=== PATIENT | female | born 1970 | race Caucasian/White ===

== ENCOUNTER → 2023-09-30 06:24 | Day surgery (SDC) | payer BC, SELFPAY | LOC: GI 06:24 | PROVIDERS: ATTENDING PHYSICIAN Internal Medicine Gastroenterology | DX: Z12.11 Encounter for screening for malignant neoplasm of colon (principal); K64.0 First degree hemorrhoids; R12 Heartburn; K31.7 Polyp of stomach and duodenum; K22.89 Other specified disease of esophagus; R19.7 Diarrhea, unspecified; K29.50 Unspecified chronic gastritis without bleeding | CPT/HCPCS: 45380; 43239; 88305; 88342 ==

== ENCOUNTER → 2024-03-28 15:03 | Outpatient (REF) | payer BC, SELFPAY | LOC: RAD 15:03 | PROVIDERS: ATTENDING PHYSICIAN Otolaryngology; FAMILY PHYSICIAN Family Medicine | DX: H93.A1 Pulsatile tinnitus, right ear (principal) | CPT/HCPCS: 70496; 70498; Q9967 ==

== ENCOUNTER → 2024-06-05 16:03 | Outpatient (REF) | payer BC, SELFPAY ==
[2024-06-20 05:49] LABS: HPV, High Risk Not Detected; HPV, High Risk Source Cervical
== END ==
LOC: CPAP 16:03
PROVIDERS: ATTENDING PHYSICIAN Obstetrics & Gynecology
DX: Z01.419 Encounter for gynecological examination (general) (routine) without abnormal findings (principal)
CPT/HCPCS: 87624

== ENCOUNTER → 2024-06-12 09:23 | Outpatient (REF) | payer BC, SELFPAY | LOC: HWWDC 09:23 | PROVIDERS: ATTENDING PHYSICIAN Family Medicine | DX: Z12.31 Encounter for screening mammogram for malignant neoplasm of breast (principal) | CPT/HCPCS: 77063; 77067 ==

== ENCOUNTER → 2024-11-07 10:02 | Outpatient (REF) | payer BC, SELFPAY ==
[2024-11-08 16:08] LABS: Lyme Antibody Screen, EIA Negative (Negative)
== END ==
LOC: HWRAD 10:02
PROVIDERS: ATTENDING PHYSICIAN Family Medicine
DX: M79.661 Pain in right lower leg (principal); W57.XXXA Bitten or stung by nonvenomous insect and other nonvenomous arthropods, initial encounter
CPT/HCPCS: 36415; 73590; 86618

== ENCOUNTER → 2024-12-25 07:49 | Outpatient (REF) | payer BC, SELFPAY ==
[2024-12-25 09:49] LABS: Hematocrit 41.8 % (37.0-47.0); Hemoglobin 13.8 g/dL (12.0-16.0); Mean Corp Hgb Conc. 33.0 g/dL (33.0-37.0); Mean Corpuscular Volume 86.0 fL (81.0-99.0); Nucleated Red Blood Cells % 0 %; Platelet Count 329 10^3/uL (130-400); Red Cell Dist. Width 13.7 % (11.5-14.5)
[2024-12-25 09:54] LABS: INR 0.86; PT 12.0 Sec (11.4-14.6)
[2024-12-25 09:55] LABS: APTT 26.9 Sec (23.4-35.0)
[2024-12-25 10:48] LABS: FSH 74.1 mIU/ml
[2024-12-25 10:57] LABS: ALT (SGPT) 41 U/L (0-35); AST (SGOT) 32 U/L (14-36); Albumin 4.8 g/dl (3.5-5.0); Alkaline Phosphatase 105 U/L (38-126); Blood Urea Nitrogen 21 mg/dl (7-17); Calcium 9.6 mg/dl (8.4-10.2); Carbon Dioxide 29 mmol/L (22-30); Chloride 104 mmol/L (98-107); Glucose 72 mg/dl (70-99); Potassium 4.7 mmol/L (3.5-5.1); Sodium 141 mmol/L (135-145); Total Protein 7.7 g/dl (6.3-8.2); eGFR > 60.00
[2024-12-25 11:02] LABS: CA 125 6.4 U/mL (0-35)
[2024-12-25 11:03] LABS: CEA 1.17 ng/ml
[2024-12-25 12:07] LABS: LDH 266 U/L (120-246)
== END ==
LOC: RAD 07:49
PROVIDERS: ATTENDING PHYSICIAN Obstetrics & Gynecology Gynecologic Oncology; FAMILY PHYSICIAN Family Medicine
DX: R93.5 Abnormal findings on diagnostic imaging of other abdominal regions, including retroperitoneum (principal); N95.1 Menopausal and female climacteric states; R10.30 Lower abdominal pain, unspecified; Z84.81 Family history of carrier of genetic disease
CPT/HCPCS: 36415; 74177; 80053; 82378; 83001; 83002; 83615; 84270; 84402; 84403; 84439; 84443; 85025; 85610; 85730; 86304; Q9967

== ENCOUNTER → 2025-01-04 09:54 | Outpatient (REF) | payer BC, SELFPAY | LOC: HWRAD 09:54 | PROVIDERS: ATTENDING PHYSICIAN Obstetrics & Gynecology Gynecologic Oncology; FAMILY PHYSICIAN Family Medicine | DX: R93.5 Abnormal findings on diagnostic imaging of other abdominal regions, including retroperitoneum (principal); N95.1 Menopausal and female climacteric states; Z84.81 Family history of carrier of genetic disease; R10.30 Lower abdominal pain, unspecified | CPT/HCPCS: 76830; 76856 ==

== ENCOUNTER → 2025-01-07 10:40 | Outpatient (REF) | payer BC, SELFPAY ==
[2025-01-07 12:10] LABS: Glycohemoglobin (HgbA1c) 5.4 % (4.0-5.6)
[2025-01-07 18:53] LABS: FSH 71.9 mIU/ml
== END ==
LOC: REG 10:40
PROVIDERS: ATTENDING PHYSICIAN Obstetrics & Gynecology; FAMILY PHYSICIAN Family Medicine
DX: N95.1 Menopausal and female climacteric states (principal)
CPT/HCPCS: 36415; 82670; 83001; 83036; 83090

== ENCOUNTER → 2025-05-01 15:33 | Outpatient (REF) | payer BC, SELFPAY ==
[2025-05-01 16:45] LABS: Free T3 2.86 pg/ml (2.77-5.27)
[2025-05-01 16:59] LABS: TSH 0.47 uIU/ml (0.47-4.68)
[2025-05-03 19:53] LABS: Total T3 (Sendout) 109 ng/dL (80-200)
[2025-05-04 02:01] LABS: Thyroid Stim. Immunoglobulin <0.10 IU/L (<=0.54)
== END ==
LOC: REG 15:33
PROVIDERS: ATTENDING PHYSICIAN Nurse Practitioner Family; FAMILY PHYSICIAN Family Medicine
DX: R94.6 Abnormal results of thyroid function studies (principal); E04.1 Nontoxic single thyroid nodule; R79.89 Other specified abnormal findings of blood chemistry
CPT/HCPCS: 36415; 82308; 83520; 84439; 84443; 84445; 84480; 84481

== ENCOUNTER → 2025-05-03 11:04 | Outpatient (REF) | payer BC, SELFPAY | LOC: HWRAD 11:04 | PROVIDERS: ATTENDING PHYSICIAN Internal Medicine Gastroenterology; FAMILY PHYSICIAN Family Medicine | DX: R74.8 Abnormal levels of other serum enzymes (principal) | CPT/HCPCS: 76700 ==